=== PATIENT | male | born 1995 | race Caucasian/White ===

== ENCOUNTER 2016-06-05 10:51 | Outpatient (RCR) | payer OTHER ==
[~2016-06-05 10:51] MED LIST: NO HOME MEDICATIONS
[2016-06-18] MEDS ORDERED: VYVANSE30 MG PO (16:41)
== END 2016-06-23 12:34 | disposition still patient (30) ==
LOC: WSOT 10:51
DX: M25.531 Pain in right wrist (principal); X50.0XXD Overexertion from strenuous movement or load, subsequent encounter

== ENCOUNTER 2016-06-18 16:35 | Emergency (ER) | payer BC ==
[~2016-06-18] VITALS: Ht 177.8 cm; Wt 68.2 kg
[2016-06-18 16:38] VITALS: TEMP 98.5
[2016-06-18] MEDS ORDERED: VYVANSE30 MG PO (16:41)
[2016-06-18 17:08] LABS: BASO # 0.1 (0.0-0.2); BASO % 0.6 % (0.0-2.0); EOS # 0.1 (0.0-0.7); EOS % 0.4 % (0-4.0); GRAN # 10.5 (1.4-6.5); GRAN % 78.7 % (42.2-75.2); HEMATOCRIT 49.9 % (36.0-47.0); HEMOGLOBIN 17.3 g/dl (12.5-16.1); LYMPH # 1.8 (1.2-3.4); LYMPH % 13.5 % (20.0-51.0); MEAN CELL VOLUME 89 fl (80.0-95.0); MEAN CORPUSCULAR HEMOGLOBIN 31 pg (26.0-32.0); MEAN CORPUSCULAR HGB CONC 35 g/dl (33.0-37.0); MEAN PLATELET VOLUME 10.6 fl (7.4-10.4); MONO # 0.9 (0.1-0.6); MONO % 6.4 % (1.7-9.3); PLATELET COUNT 285 K/mm3 (130-400); RED BLOOD COUNT 5.58 M/mm3 (4.20-5.60); REDCELL DISTRIBUTION WIDTH-CV 12.5 % (11.5-14.5); WHITE BLOOD COUNT 13.4 K/mm3 (4.8-10.8)
[2016-06-18 17:17] LABS: ADJUSTED CALCIUM 9.4 mg/dL (8.4-10.2); ALANINE AMINOTRANSFERASE 33 U/L (21-72); ALBUMIN 5.1 gm/dL (3.5-5.0); ALKALINE PHOSPHATASE 71 U/L (50-136); ANION GAP 15 mmol/L (7-16); BILIRUBIN,TOTAL 0.9 mg/dL (0.0-1.0); BLOOD UREA NITROGEN 6 mg/dL (9-20); CALCIUM 10.3 mg/dL (8.4-10.2); CARBON DIOXIDE 25 mmol/L (22-30); CHLORIDE 102 mmol/L (98-107); CREATININE, serum 1.09 mg/dL (0.66-1.25); GLUCOSE 91 mg/dL (74-106); LIPASE 52 U/L (23-300); MAGNESIUM 2.2 mg/dL (1.6-2.3); POTASSIUM 3.6 mmol/L (3.4-5.0); SODIUM 142 mmol/L (137-145); TOTAL PROTEIN 9.2 gm/dL (6.4-8.2)
[2016-06-18 17:42] LABS: TROPONIN-I < 0.012 ng/mL (0.000-0.034)
[2016-06-18 18:29] VITALS: BP 155/78; PULSE 81
== END 2016-06-18 18:30 | disposition home or self-care (01) ==
LOC: COL.ER 16:35
PROVIDERS: Emergency Medicine
DX: R00.2 Palpitations (principal); R00.0 Tachycardia, unspecified; I45.10 Unspecified right bundle-branch block
CPT/HCPCS: J2060; J7030

== ENCOUNTER 2016-08-03 11:55 | Emergency (ER) | payer BC ==
[~2016-08-03] VITALS: Ht 177.8 cm; Wt 65.9 kg
[~2016-08-03 11:55] MED LIST changes: +VYVANSE30 MG PO
[2016-08-03 11:57] VITALS: TEMP 99.3
[2016-08-03] MEDS ORDERED: CIPRO 500MG TA500 MG PO (12:00)
[2016-08-03] MEDS ORDERED: ATARAX 25MG25 MG/TAB PO ×2 (12:03→12:05)
[2016-08-03 12:36] LABS: BASO # 0.1 (0.0-0.2); BASO % 0.7 % (0.0-2.0); EOS # 0.1 (0.0-0.7); EOS % 0.9 % (0-4.0); GRAN # 4.9 (1.4-6.5); GRAN % 71.6 % (42.2-75.2); HEMATOCRIT 45.5 % (36.0-47.0); HEMOGLOBIN 15.2 g/dl (12.5-16.1); LYMPH # 1.1 (1.2-3.4); LYMPH % 16.1 % (20.0-51.0); MEAN CELL VOLUME 92 fl (80.0-95.0); MEAN CORPUSCULAR HEMOGLOBIN 31 pg (26.0-32.0); MEAN CORPUSCULAR HGB CONC 33 g/dl (33.0-37.0); MEAN PLATELET VOLUME 10.4 fl (7.4-10.4); MONO # 0.7 (0.1-0.6); MONO % 10.6 % (1.7-9.3); PLATELET COUNT 201 K/mm3 (130-400); RED BLOOD COUNT 4.96 M/mm3 (4.20-5.60); REDCELL DISTRIBUTION WIDTH-CV 13.3 % (11.5-14.5); WHITE BLOOD COUNT 6.9 K/mm3 (4.8-10.8)
[2016-08-03 12:46] LABS: ADJUSTED CALCIUM 9.3 mg/dL (8.4-10.2); ALBUMIN 4.8 gm/dL (3.5-5.0); BILIRUBIN,TOTAL 0.7 mg/dL (0.0-1.0); CALCIUM 9.9 mg/dL (8.4-10.2); CREATININE, serum 1.01 mg/dL (0.66-1.25); TOTAL PROTEIN 8.3 gm/dL (6.4-8.2)
[2016-08-03 13:37] LABS: PH 8 (5-8); SQUAMOUS EPITHELIAL None Seen /hpf; URINE APPEARANCE Hazy; URINE BACTERIA Rare /hpf; URINE BILIRUBIN Negative (NEGATIVE); URINE BLOOD Negative (NEGATIVE); URINE COLOR Straw; URINE GLUCOSE Negative (NEGATIVE); URINE KETONE Negative (NEGATIVE); URINE RBC 0-2 /hpf; URINE UROBILINOGEN Negative (NEGATIVE); URINE WBC 0-2 /hpf
[2016-08-03 14:30] VITALS: BP 140/91; PULSE 78
[2016-08-03 15:47] LABS: CHLAMYDIA/TRACH by PCR Male NOT DETECTED; Neisseria Gon by PCR Male NOT DETECTED
[2016-08-03] MEDS ORDERED: ATIVAN 1MG T1 MG/TAB PO (22:59)
== END 2016-08-03 14:20 | disposition home or self-care (01) ==
LOC: COL.ER 11:55
PROVIDERS: Nurse Practitioner
DX: R11.10 Vomiting, unspecified (principal)
CPT/HCPCS: J2405; J7030

== ENCOUNTER 2016-08-03 21:02 | Emergency (ER) | payer BC ==
[~2016-08-03] VITALS: Ht 177.8 cm; Wt 65.9 kg
[~2016-08-03 21:02] MED LIST changes: +ATARAX 25MG25 MG/TAB PO; +CIPRO 500MG TA500 MG PO
[2016-08-03 21:05] VITALS: TEMP 97
[2016-08-03] MEDS ORDERED: ATIVAN 1MG T1 MG/TAB PO (22:59)
[2016-08-03 23:07] VITALS: BP 131/87; PULSE 84
== END 2016-08-03 23:07 | disposition home or self-care (01) ==
LOC: COL.ER 21:02
DX: F41.9 Anxiety disorder, unspecified (principal); R11.10 Vomiting, unspecified

== ENCOUNTER 2018-03-21 09:48 | Emergency (ER) | payer BC ==
[~2018-03-21] VITALS: Ht 177.8 cm; Wt 77.2 kg
[~2018-03-21 09:48] MED LIST changes: +ATIVAN 1MG T1 MG/TAB PO
[2018-03-21 09:55] VITALS: TEMP 98.6
[2018-03-21] MEDS ORDERED: CELEXA 20MG20 MG/TAB PO (10:04)
[2018-03-21] MEDS ORDERED: ATIVAN 1MG T1 MG/TAB PO (11:04)
[2018-03-21 11:07] VITALS: BP 131/71; PULSE 79
== END 2018-03-21 11:07 | disposition home or self-care (01) ==
LOC: COL.ER 09:48
DX: F41.0 Panic disorder [episodic paroxysmal anxiety] (principal); F12.90 Cannabis use, unspecified, uncomplicated; Z96.22 Myringotomy tube(s) status

== ENCOUNTER 2018-08-21 09:20 | Emergency (ER) | payer BC ==
[~2018-08-21] VITALS: Ht 177.8 cm; Wt 72.7 kg
[~2018-08-21 09:20] MED LIST changes: +CELEXA 20MG20 MG/TAB PO
[2018-08-21 09:23] VITALS: TEMP 96.6
[2018-08-21] MEDS ORDERED: CEPHALEXIN500 M1 PO (09:34)
[2018-08-21] MEDS ORDERED: BUSPAR10 MG PO (09:35)
[2018-08-21] MEDS ORDERED: ATIVAN 0.50.5 MG/TAB PO (09:35)
[2018-08-21] MEDS ORDERED: REMERON 15M15 MG/TA1 PO (09:36)
[2018-08-21 13:04] LABS: BASO % 0.3 % (0.0-2.0); EOS % 0.1 % (0-4.0); GRAN # 13.1 (1.4-6.5); GRAN % 88.1 % (42.2-75.2); HEMATOCRIT 43.1 % (42.0-52.0); HEMOGLOBIN 14.8 g/dl (13.5-18.0); LYMPH # 0.7 (1.2-3.4); LYMPH % 4.8 % (20.0-51.0); MEAN CELL VOLUME 90 fl (80.0-100.0); MEAN CORPUSCULAR HEMOGLOBIN 31 pg (27.0-31.0); MEAN CORPUSCULAR HGB CONC 34 g/dl (33.0-37.0); MEAN PLATELET VOLUME 10.5 fl (7.4-10.4); MONO # 0.9 (0.1-0.6); MONO % 6.3 % (1.7-9.3); PLATELET COUNT 222 K/mm3 (130-400); RED BLOOD COUNT 4.77 M/mm3 (4.20-5.60); REDCELL DISTRIBUTION WIDTH-CV 12.6 % (11.5-14.5)
[2018-08-21 13:08] LABS: ALBUMIN 4.4 gm/dL (3.5-5.0); BILIRUBIN,TOTAL 0.6 mg/dL (0.0-1.0); CALCIUM 9.2 mg/dL (8.4-10.2); CREATININE, serum 0.85 (0.66-1.25); TOTAL PROTEIN 7.8 gm/dL (6.4-8.2)
[2018-08-21 13:10] LABS: POTASSIUM 2.9 mmol/L (3.4-5.0)
[2018-08-21] MEDS ORDERED: ZOFRAN ODT4 MG PO (13:55)
[2018-08-21 14:12] VITALS: BP 143/86; PULSE 86
[2018-08-22] MEDS ORDERED: VALIUM 5MG T5 MG/TAB PO ×2 (21:35→21:38)
[2018-08-22] MEDS ORDERED: PHENERGAN 25 TA25 MG PO (21:35)
== END 2018-08-21 14:13 | disposition home or self-care (01) ==
LOC: COL.ER 09:20
PROVIDERS: Nurse Practitioner
DX: F41.9 Anxiety disorder, unspecified (principal); E87.6 Hypokalemia; F90.9 Attention-deficit hyperactivity disorder, unspecified type; G43.909 Migraine, unspecified, not intractable, without status migrainosus; F12.90 Cannabis use, unspecified, uncomplicated; Z88.0 Allergy status to penicillin
CPT/HCPCS: J2060; J2405; J2550; J7030

== ENCOUNTER 2018-08-21 18:37 | Emergency (ER) | payer BC ==
[~2018-08-21] VITALS: Ht 177.8 cm; Wt 72.7 kg
[~2018-08-21 18:37] MED LIST changes: +ATIVAN 0.50.5 MG/TAB PO; +BUSPAR10 MG PO; +CEPHALEXIN500 M1 PO; +REMERON 15M15 MG/TA1 PO; +ZOFRAN ODT4 MG PO
[2018-08-21 18:46] VITALS: BP 136/889; PULSE 139; TEMP 99.5
[2018-08-22] MEDS ORDERED: VALIUM 5MG T5 MG/TAB PO ×2 (21:35→21:38)
[2018-08-22] MEDS ORDERED: PHENERGAN 25 TA25 MG PO (21:35)
== END 2018-08-21 21:36 | disposition home or self-care (01) ==
LOC: COL.ER 18:37
DX: F41.0 Panic disorder [episodic paroxysmal anxiety] (principal)
CPT/HCPCS: J2060; J2405

== ENCOUNTER 2018-08-22 17:34 | Emergency (ER) | payer BC ==
[~2018-08-22] VITALS: Ht 177.8 cm; Wt 72.7 kg
[2018-08-22 17:43] VITALS: TEMP 97.9
[2018-08-22 19:56] VITALS: BP 140/90
[2018-08-22] MEDS ORDERED: VALIUM 5MG T5 MG/TAB PO ×2 (21:35→21:38)
[2018-08-22] MEDS ORDERED: PHENERGAN 25 TA25 MG PO (21:35)
[2018-08-22 22:23] VITALS: PULSE 99
== END 2018-08-22 22:24 | disposition home or self-care (01) ==
LOC: COL.ER 17:34
DX: F41.0 Panic disorder [episodic paroxysmal anxiety] (principal); F12.188 Cannabis abuse with other cannabis-induced disorder
CPT/HCPCS: J2060; J2550

== ENCOUNTER 2019-10-14 21:34 | Emergency (ER) | payer BC ==
[~2019-10-14] VITALS: Ht 177.8 cm; Wt 84.1 kg
[~2019-10-14 21:34] MED LIST changes: +PHENERGAN 25 TA25 MG PO; +VALIUM 5MG T5 MG/TAB PO
[2019-10-14 21:37] VITALS: BP 129/91; TEMP 98.5
[2019-10-14 23:19] VITALS: PULSE 75
== END 2019-10-14 23:19 | disposition home or self-care (01) ==
LOC: COL.ER 21:34
DX: F41.9 Anxiety disorder, unspecified (principal); R11.2 Nausea with vomiting, unspecified
CPT/HCPCS: J1630; J2060; J7030